=== PATIENT | male | born 1980 | race Caucasian/White ===

== ENCOUNTER 2024-04-30 09:47 | Outpatient (CLI) | payer OTHER, SELFPAY | END 2024-04-30 09:48 | disposition home or self-care (01) | PROVIDERS: PCP Internal Medicine; Visit Provider Internal Medicine | DX: R53.83 Other fatigue (principal); Z13.6 Encounter for screening for cardiovascular disorders | CPT/HCPCS: 80053; 80061; 84443 ==

== ENCOUNTER 2025-04-27 14:00 | Emergency (ER) | payer OTHER, SELFPAY ==
--- OUTSIDE RECORDS SUMMARY | 2025-04-27 14:03 | XMS_ITS | Clinical Summary ---
Author Organization [facility] Address [address] [place] [address] Care Team Providers Care Goring Cutter Name Role Phone Elsewhere, Pcp Primary Care Provider Unavailabl e Source Comments Patient records contain information from all sites at [facility]. For routine questions regarding patient records, call [phone] during business hours, M-F 8:00 AM - 5:00 PM Central Time. Record requests for emergency care only can be directed to [phone] at any time.[facility] Allergies Active Allergy Reactions Criticality Noted Date Comments Pollen Extracts Other (see comments) 02/14/2014 SEASONAL ALLERGIES Medications multivit with minerals/lutein (MULTIVITAMIN 50 PLUS ORAL) One-A-Day Men's Health Formula See Instructions , Take by mouth daily. 02/14/2014 Active albuterol 2.5 mg /3 mL nebulizer solution Inhale 2.5 mg. 06/05/2011 Active albuterol 90 mcg/actuation inhaler May use two puffs up to every 4-6 hours if needed as a rescue inhaler 12/20/2017 Active cetirizine 10 mg capsule Take 10 mg by mouth. 08/07/2017 Active Active Problems Problem Noted Date Diagnosed Date Asthma NOS 02/14/2014 Overview (04/10/2017): Asthma, Unspecified Mild persistent asthma Immunizations Immunization Administration Dates Next Due Influenza TIV (IM) 09/23/2012,09/14/2005, 999 Influenza, Seasonal, Injectable 09/23/2012,09/14,08/30/1999 Influenza, Unspecified 09/21/2021(Deferr ed: Patient decision),09/13/2016,09/23/2012 PCV13 02/11/2015 PPSV23 09/08/2019 Tdap 09/23/2012 influenza vaccine quad (FLUZONE/FLUARIX) (6 months and older)(PF) 09/08/2019,09/24/2018,08/07/2017,2015 Family History Medical History Relation Name Comments Diabetes Father Relation Name Status Comments Father Social History Tobacco Use Types Packs/Day Years Used Date Smoking Tobacco: Never Smokeless Tobacco: Never Tobacco Cessation:Counseling Given: Not Answered PHQ-2 Answer Date Recorded PHQ-2 Score 0 09/21/2021 Nutrition Answer Date Recorded Nutrition: EVOO Fat Source Unknown 01/20 Nutrition: Servings of Fruits/Vegetables per Day Not on file 01/20/2021 Dental Answer Date Recorded Dental: Regular Dentist Unknown 01/21/20 Sex and Gender Information Value Date Recorded Sex Assigned at Male 04/12/2022 9:57 AM CDT Legal Sex Male 10:26 AM INDUSTRIAL MAINTENANCE TECHNICIAN Gender Identity Male 04/12/2022 9:57 AM CDT Sexual Orientation Straight 04/12/2022 9: 57 AM CDT Last Filed Vital Signs Vital Sign Reading Time Taken Comments Blood Pressure 126/80 10/03/2023 10:02 AM INDUSTRIAL MAINTENANCE TECHNICIAN Pulse 77 10/03/2023 10:02 AM INDUSTRIAL MAINTENANCE TECHNICIAN Temperature 36.8 C (98.2 F) 10/03/2023 10:02 AM INDUSTRIAL MAINTENANCE TECHNICIAN Respiratory Rate 16 02/11/2015 9:52 AM CDT Oxygen Saturation 95% 10/03/2023 10: 02 AM INDUSTRIAL MAINTENANCE TECHNICIAN Inhaled Oxygen Concentration - - Weight 95.6 kg (210 lb 12.2 oz) 023 10:02 AM INDUSTRIAL MAINTENANCE TECHNICIAN Height 189 cm (6' 2.41) 10/03/2023 10: 02 AM INDUSTRIAL MAINTENANCE TECHNICIAN Body Mass Index 26.76 10/03/2023 10:02 AM INDUSTRIAL MAINTENANCE TECHNICIAN Plan of Treatment Health Maintenance Due Date Last Done Comments HIV Screening 1980 Hepatitis C Screening 1980 Hepatitis B Vaccines (1 of 3 - 19+ 3-dose series) 1999 Asthma Action Plan 05/02/2017 02/15/2016 Asthma Control Test Questionnaire 05/02/2017 02/15/2016 Asthma Management/Exacerbation Questionnaire (AMQ/AEQ) 05/02/2017 COVID-19 Vaccine ( - 2023- season) 2024 Influenza Vaccine (#1) 2024 9, 09/24/2018, 08/07/2017, Additional history exists Depression Screening (Annual PHQ-2) 11/19/2024 Lipid (Cholesterol) Screening 06/25/2028 06/25/2023, 02/11/2015 Pneumococcal vaccine (0-49 years) (3 of 3 - PCV20 or PCV21) 2030 09/08/2019, 02/11/2015 DTaP,Tdap,and Td Vaccines (3 - Td or Tdap) 06/25/2033 06/25/2023, 09/23/2012 HPV Vaccines Aged Out No longer eligi ble based on patient's age to complete this topic IPV Vaccines Aged Out No longer eligi ble based on patient's age to complete this topic Procedures Procedure Name Priority Date/Time Associated Diagnosis Comments LIPID PANEL, S Routine 02/11/2015 10:27 AM CDT from Last 3 Months or Most Recently Relevant to Health Maintenance Results * (ABNORMAL) Lipid Panel (02/11/2015 10:27 AM CDT) Cholesterol, Total 208(H) 0 - 200 MGDL POWERCHART Comment: <200 mg/dL Desirable 200-239 mg/dL Borderline High >239 mg/dL High HX HDL 58 35 - 60 MGDL POWERCHART Comment: > 60 mg/dL Desirable 40 60 mg/dL Low Risk <40 mg/dL Undesirable Triglycerides 93 9 - 150 MGDL POWERCHART Comment: <150 mg/dL Desirable 150-199 mg/dL Borderline High 200-499 mg/dL High > 499 Very High Calculated LDL 131(H) 100 - 129 MGDL POWERCHART Total Cholesterol/HDL Ratio 4 POWERCHART Blood 02/11/2015 10:2 7 AM CDT us Arslan Lomeli M.D. LAB BLOOD ADD-ON Final Re sult POWERCHART from Last 3 Months or Most Recently Relevant to Health Maintenance Care Teams Goring Cutter Relationship Specialty Start Date End Date Elsewhere, Pcp PCP - General Family Medicine 07/14/20
--- OUTSIDE RECORDS SUMMARY | 2025-04-27 14:03 | XMS_ITS | Clinical Summary ---
Author Organization [facility] Address [facility] [place] [address] Care Team Providers Care Safety Relief Valve Technician Name Role Phone Pcp, No Primary Care Provider Unavailabl e Allergies No known active allergies Medications Cetirizine (ZYRTEC) 10 mg capIndications:En vironmental allergies Take 1 capsule by mouth once daily if needed. 30 Cap 5 7 Active albuterol (PROVENTIL) 0.083 % neb solutionIndicatio ns:Moderate persistent asthma without complication (HC) Inhale 3 mL via a nebulizer every 6 hours if needed. 1 box 5 7 Active NebulizerIndicati ons:Moderate persistent asthma without complication (HC) Nebulizer, disposable neb kit x 4, reuseable neb kit x 1, mask x 1, filters x 1. Frequency of use: daily; Medication: albuterol 0.083%. 1 Device 7 Active montelukast (SINGULAIR) 10 mg tabletIndications :Moderate persistent asthma without complication (HC) Take 1 tablet by mouth at bedtime. 30 tablet 6 8 Active albuterol HFA (VENTOLIN HFA) 90 mcg/actuation inhalerIndication s:Moderate persistent asthma without complication (HC) Inhale 2 Puffs by mouth 4 times daily if needed. 1 Inhaler 6 8 Active fluticasone (FLOVENT) 220 mcg/Actuation inhalerIndication s:Moderate persistent asthma without complication (HC) Inhale 1 Puff by mouth 2 times daily. 1 Inhaler 6 8 Active predniSONE (DELTASONE) 20 mg tabletIndications :Moderate persistent asthma without complication (HC) Take 1 tablet by mouth 2 times daily with meals. 10 tablet 8 Active beclomethasone, 80 mcg each actuation, (QVAR) 80 mcg/actuation inhalerIndication s:Moderate persistent asthma without complication (HC) Inhale 2 Puffs by mouth 2 times daily. 1 Inhaler 5 8 Active Active Problems Problem Noted Date Diagnosed Date Moderate persistent asthma without complication 08/07/2017 Environmental allergies 08/07/2017 Immunizations Immunization Administration Dates Next Due AMB Influenza, IIV4 PF (=>6 mos Flulaval,Fluzone Fluarix)(Flu Clinic Only) 09/24/2018 Influenza, IIV3 (Age >=3 years) 09/23/2012,09/14,08/30/1999 Influenza, IIV4 08/07/2017,09/13/2016 Pneumococcal conj 13-Valent (Prevnar 13) 015 Tdap 09/23/2012 Family History Medical History Relation Name Comments Diabetes Father Asthma Other in nieces No Known Problems Sister 1 Other Sister 2 suicide No Known Problems Son born 11/07 16 Relation Name Status Comments Father Other Sister 1 Sister 2 Son Social History Tobacco Use Types Packs/Day Years Used Date Smoking Tobacco: Never Smokeless Tobacco: Never Tobacco Cessation:Counseling Given: Yes Alcohol Use Standard Drinks/Week Comments Yes 3 (1 standard drink = 0.6 oz pur e alcohol) Social Connections Answer Date Recorded Frequency of Communication with Friends and Fami ly Not on file 11/19/2021 Financial Resource Strain Answer Date R ecorded Difficulty of Paying Living Expenses Not on file 11/19/2021 Difficulty of Paying Living Expenses Not on file 11/19/2021 Sex and Gender Information Value Date Recorded Sex Assigned at Not on file Legal Sex Male 8:29 AM PARK SERVICES SPECIALIST Gender Identity Not on file Sexual Orientation Not on file Obstetrics History Last Filed Vital Signs Vital Sign Reading Time Taken Comments Blood Pressure 116/78 11/01/2021 3:06 PM PARK SERVICES SPECIALIST Pulse 86 11/01/2021 3:06 PM PARK SERVICES SPECIALIST Temperature 36.7 C (98.1 F) 11/01/2021 3:06 PM PARK SERVICES SPECIALIST Respiratory Rate - - Oxygen Saturation 97% 11/01/2021 3:06 PM PARK SERVICES SPECIALIST Inhaled Oxygen Concentration - - Weight 97.4 kg (214 lb 11.2 oz) 11/01/2021 3:06 PM PARK SERVICES SPECIALIST Height 187 cm (6' 1.62) 12/20/2017 10: 34 AM PARK SERVICES SPECIALIST Body Mass Index 27.85 12/20/2017 10:34 AM PARK SERVICES SPECIALIST Plan of Treatment Health Maintenance Due Date Last Done Comments HIV for age 15-65 1995 Hepatitis C screening for age 18-79 1998 Hepatitis B series for 19+ (1 of 3 - 19+ 3-dose series) 1999 Lipids for age 35-44 2015 Depression screening for age 12+ 08/07/2018 08/07/2017 BMI (ht and wt on same day) for age 18+ 12/20/2018 12/20/2017, 08/07/2017 Tetanus booster 09/23/2022 09/23/2012 COVID-19 vaccine series ( season) 2024 Influenza Vaccine (Season Ended) 2025 09/24/2018, 08/07/2017, 09/13/2016, Additional history exists Tdap Completed 09/23/2012 Pneumococcal series for age 6-49 Aged Out 02/11/2015 No longer eligible based on patient's age to complete this topic Care Teams Safety Relief Valve Technician Relationship Specialty Start Date End Date Pcp, No . PCP - General 04/03/17
[2025-04-27 14:06] VITALS: BP 139/83; PULSE 89; RESP 16; TEMP 36.2; O2SAT 95; BMI 27.2
--- NOTE | 2025-04-27 14:12 | ED.GENADULT ---
HPI - General Adult General Chief complaint: Abdominal Pain Stated complaint: middle chest pain/pain in stomach Time Seen by Provider: 04/27/25 14:04 History of Present Illness HPI narrative: Pt reports onset of bilateral chest pain yesterday . Tried tums, did not help. Pain has moved to medial lower chest and feels uncomfortable. More tired than usual. Called clinic and they sent pt to ER. 44-year-old man presenting to the emergency department with concern of some chest discomfort. Began yesterday in is continued today. Just does not feel well. Maybe feels more tired and that is unusual. Not short of breath. Does not use struggle with heartburn. He does endorse intermittently likely needing piece of steak or something that it feels like it temporarily can get caught up and that can make him double over; seems to be describing a similar feeling. Does not know that he has any food though stuck at this point. No known cardiac problems. No shortness of breath with this. [place] like he just needed to burp at. Did manage to do so a bit and did not really change anything. Not feeling lightheaded. History of asthma. Related Data Home Medications ?Medication ?Instructions ?Recorded ?Confirmed loratadine 10 mg tablet (Claritin) 10 mg PO QDAY 04/30/24 04/30/25 Previous Rx's ?Medication ?Instructions ?Recorded fluticasone 250 mcg-salmeterol 50 1 inh inhalation BID #60 ea 07/17/24 mcg/dose blistr powdr for inhalation (Advair Diskus) albuterol sulfate 90 mcg/actuation 2 puff inhalation QID #8.5 grams 04/23/25 aerosol inhaler omeprazole 20 mg capsule,delayed 20 mg PO QDAY #30 caps 04/30/25 release Allergies Allergy/AdvReac Type Severity Reaction Status Date / Time No Known Drug Allergies Allergy Verified 04/30/25 07:54 Review of Systems Status of ROS: Reports: 6 or more systems reviewed and unremarkable except as noted in History and below [facility] Medical History (Updated 04/30/25 @ 08:10 by Forrest Guillaume MD) GERD (gastroesophageal reflux disease) ?K21.9 - Gastro-esophageal reflux disease without esophagitis (ICD-10) Asthma ?J45.909 - Unspecified asthma, uncomplicated (ICD-10) Social History What is your current living situation?: I presently have a place to live Problems where you live: no known problems In the past 12 months, utilities in danger of being shut off: no In past 12 months, lack of transportation kept you from medical appts, meetings, work, or getting things needed for daily living: no In the past 12 mos, have been you worried that your food would run out before you had money to buy more?: never true In the past 12 mos, the food you bought just didn't last and you didn't have money to buy more?: never true Smoking Status: Never smoker How often do you have a drink containing alcohol: never How often do you have six or more drinks on one occasion: Never AUDIT-C Alcohol total score: 0 Non-prescribed substance use: denies use How often does anyone, including family, friends and others, physically hurt you: never How often does anyone, including family, friends and others, insult or talk down to you: sometimes How often does anyone, including family, friends and others, threaten you with harm: never How often does anyone, including family, friends and others, scream or curse at you: sometimes Health Related Social Needs: Other personal risk factors, not elsewhere classified (Z91.89) Exam Narrative: Exam Narrative: Pleasant. NAD. Speaking easily. Breathing easily. Lungs are clear. Heart in regular rate and rhythm without murmur rub or gallop. Abdomen is soft though he seems to be ?fighting back? essentially guarding but it is not tender. No reproduction of pain to palpation of the chest wall either. No supraclavicular crepitus. Extremities are well perfused without edema. Const: Vital Signs, click to edit/add: Vital Signs - 24 hr 04/27/25 14:06 Temperature 97.1 F L Pulse Rate [Pulse Oximeter] 89 Respiratory Rate 16 Blood Pressure [Ri ght Upper Arm] 139/83 Pulse Oximetry 95 Oxygen Delivery Me thod Room Air Documenting provider has reviewed patient's vital signs: yes Course Vital Signs Vital signs: Initial Vital Signs Temperature 97.1 F L 04/27/25 14:06 Temperature Source Temporal Artery Scan 04/27/25 14:06 Pulse Rate 89 04/27/25 14:06 Respiratory Rate 16 04/27/25 14:06 Blood Pressure 139/83 04/27/25 14:06 Blood Pressure Mean 101 04/27/25 14:06 Blood Pressure Position Sitting 04/27/25 14:06 Pulse Oximetry 95 04/27/25 14:06 Oxygen Delivery Method Room Air 04/27/25 14:06 Vital Signs Temperature 97.1 F L 04/27/25 14:06 Pulse Rate 89 04/27/25 14:06 Respiratory Rate 16 04/27/25 14:06 Blood Pressure 139/83 04/27/25 14:06 Pulse Oximetry 95 04/27/25 14:06 Oxygen Delivery Method Room Air 04/27/25 14:06 Temperature 97.1 F L 04/27/25 14:06 Pulse Rate 89 04/27/25 14:06 Respiratory Rate 16 04/27/25 14:06 Blood Pressure 139/83 04/27/25 14:06 Pulse Oximetry 95 04/27/25 14:06 Oxygen Delivery Method Room Air 04/27/25 14:06 Medications Administered Medications: Discontinued Medications Generic Name Dose Route Start Last Admin Trade Name Freq PRN Reason Stop Dose Admin Lidocaine/Aluminum/Magnesium/Simeth 30 ml 04/27/25 15:12 04/27/25 15:27 Gi Cocktail (Visc Lido/Antacid) 30 Ml PO 04/27/25 15:13 30 ml ONCE ONE Administration Medical Decision Making MDM Narrative Medical decision making narrative: Nonspecific chest pain at this point. Could be some difficulty with esophageal relaxation/dysmotility issue/dysphagia. Is managing secretions however this point. Suppose pneumomediastinum or pneumothorax? Will evaluate also for ischemic cardiovascular disease. Unlikely to have pulmonary embolus. Not pleuritic with as I would expect with pleuritis. Might have a stricture. Monitor on monitoring and evaluation advisor emergency department without event. Labs are reassuring. Chest x-ray one view looks to be without pneumothorax or pneumomediastinum. Normal cardiac silhouette. No infiltrate appreciated. Did trial GI cocktail. This may be did help some symptoms lessen. see patient discharge plan for further discussion It does sound as though you might be having some trouble with your esophagus. Have not seen any evidence of a heart problem here today. If you suspect indigestion or heartburn symptoms, you might try famotidine once or twice daily. Perhaps for more rapid relief could try liquid antacid/anti-gas as well. I would encourage you to follow-up with your primary care provider to discuss further evaluation which might include an esophagogastric duodenoscopy or maybe more of a heart workup if that seems more appropriate. Take care with eating in the meantime. Stay well-hydrated. Medical Records Medical records reviewed: Yes I reviewed the patient's medical records Lab Data Lab results reviewed: Yes I reviewed the patient's lab results Labs: Lab Results 04/27/25 04/27/25 04/27/25 Range/Units 14:25 14:36 15:12 WBC 6.46 (4.50-11.00) K/uL RBC 4.97 (4.30-5.90) m/uL Hgb 14.8 (13.5-17.5) gm/dL Hct 43.6 (37.0-53.0) % MCV 88 (80-100) fL MCH 30 (26-34) pg MCHC 34 (32-36) gm/dL RDW Coeff of Papa 12.4 (11.5-15.5) % Plt Count 236 (140-440) K/uL Neut % (Auto) 60.2 (42.0-72.0) % Lymph % (Auto) 27.2 (20-44) % [place] % (Auto) 8.8 (0.0-11.0) % Eos % (Auto) 2.8 (0.0-7.0) % Baso % (Auto) 0.8 (0.0-3.0) % Neut # (Auto) 3.89 (1.7-7.0) K/uL Lymph # (Auto) 1.76 (0.90-2.90) K/uL [place] # (Auto) 0.60 (0.00-0.90) K/UL Eos # (Auto) 0.18 (0.00-0.50) K/uL Baso # (Auto) 0.05 (0.00-0.30) K/uL Abs Immat Gran (auto) 0.01 (0.00-0.30) K/uL Imm/Tot Granulo (auto) 0.2 % Sodium 140 (135-149) mmol/L Potassium 4.4 (3.6-5.1) mmol/L Chloride 103 (96-114) mmol/L Carbon Dioxide 31 (20-32) mmol/L Anion Gap 6 L (7-15) mEq/L BUN 12 (5-24) mg/dL Creatinine 1.0 (0.5-1.5) mg/dL Estimated Creat Clear 106.53 Estimated GFR 95 ml/min Glucose 97 (60-115) mg/dL Calcium 9.7 (8.4-10.6) mg/dL Total Bilirubin 0.8 (0.1-1.5) mg/dL Direct Bilirubin 0.1 (0.0-0.5) mg/dL AST 34 (12-35) U/L ALT 45 (4-50) U/L Alkaline Phosphatase 59 (40-150) U/L Troponin I < 0.01 (0.01-0.04) ng/mL NT-Pro-B Natriuret Pep < 20 (See Note) pg/mL Total Protein 7.4 (6.0-8.3) g/dL Albumin 4.7 (3.3-5.0) g/dL Lab Acknowledgement Test Added POC Troponin I 0.00 L (0.01-0.04) ng/ml ECG Data Attestation: I personally reviewed and interpreted this ECG as follows: (Normal sinus rhythm. Rate of 71. Similar to prior.) Discharge Plan Discharge Clinical Impression: Atypical chest pain Patient Disposition: Home, Self-Care Condition: Improved Additional Instructions: It does sound as though you might be having some trouble with your esophagus. Have not seen any evidence of a heart problem here today. If you suspect indigestion or heartburn symptoms, you might try famotidine once or twice daily. Perhaps for more rapid relief could try liquid antacid/anti-gas as well. I would encourage you to follow-up with your primary care provider to discuss further evaluation which might include an esophagogastric duodenoscopy or maybe more of a heart workup if that seems more appropriate. Take care with eating in the meantime. Stay well-hydrated. Prescriptions: No Action omeprazole 20 mg capsule,delayed release(DR/EC) 20 mg PO QDAY Qty: 30 0RF loratadine [Claritin] 10 mg tablet 10 mg PO QDAY fluticasone propion-salmeterol [Advair Diskus] 250-50 mcg/dose blister with device 1 inh inhalation BID Qty: 60 3RF albuterol sulfate 90 mcg/actuation HFA aerosol inhaler 2 puff inhalation QID Qty: 8.5 3RF Follow Up/Referrals: Forrest Guillaume MD [Primary Care Provider, Internal Medicine] Stand Alone Forms: [employer] Info Instructions
--- NOTE | 2025-04-27 14:25 | CRLHL7_ITS ---
For Patients: As a result of the Century Cures Act, medical imaging exams and procedure reports are released immediately into your electronic medical record. You may view this report before your referring provider. If you have questions, please contact your health care provider. INDICATION: Generalized chest pain. TECHNIQUE: Chest 1 views. COMPARISON: None. FINDINGS: Cardiovasculature and mediastinum: Heart size and vasculature are normal in caliber and appearance. Lungs and pleural spaces: Lungs are clear. No sign of infiltrate or mass. No sign of pleural effusion. No pneumothorax. Bones and soft tissues: No significant findings. IMPRESSION: No acute or significant findings. Dictated by Tyson Padilla MD @ 04/27/2025 3:37:59 PM (Electronically Signed)
[2025-04-27 14:42] LABS: Basophils Absolute Auto 0.05 K/uL (0.00-0.30); Basophils Percent Auto 0.8 % (0.0-3.0); Eosinophils Absolute Auto 0.18 K/uL (0.00-0.50); Eosinophils Percent Auto 2.8 % (0.0-7.0); Hematocrit 43.6 % (37.0-53.0); Hemoglobin* 14.8 gm/dL (13.5-17.5); Immature Granulocytes Abs Auto 0.01 K/uL (0.00-0.30); Immature Granulocytes Pct Auto 0.2 %; Lymphocytes Absolute Auto 1.76 K/uL (0.90-2.90); Lymphocytes Percent Auto 27.2 % (20-44); Mean Corpuscular HGB Conc 34 gm/dL (32-36); Mean Corpuscular Hemoglobin 30 pg (26-34); Mean Corpuscular Volume 88 fL (80-100); Monocytes Percent Auto 8.8 % (0.0-11.0); Neutrophils Absolute Auto 3.89 K/uL (1.7-7.0); Neutrophils Percent Auto 60.2 % (42.0-72.0); Platelet Count* 236 K/uL (140-440); RDW Coefficient of Variation % 12.4 % (11.5-15.5); Red Blood Count 4.97 m/uL (4.30-5.90); White Blood Count* 6.46 K/uL (4.50-11.00)
[2025-04-27 15:04] LABS: Chloride* 103 mmol/L (96-114)
[2025-04-27 15:05] LABS: Potassium* 4.4 mmol/L (3.6-5.1); Sodium* 140 mmol/L (135-149)
[2025-04-27 15:08] LABS: Anion Gap 6 mEq/L (7-15); Blood Urea Nitrogen* 12 mg/dL (5-24); Calcium* 9.7 mg/dL (8.4-10.6); Carbon Dioxide* 31 mmol/L (20-32); Est. Creatinine Clearance* 106.53; Estimated Glomerular Filt Rate 95 ml/min; Glucose* 97 mg/dL (60-115)
[2025-04-27 15:16] LABS: Slide Review Reflex No
[2025-04-27 15:23] LABS: NT Pro B Type NatriureticPept* < 20 pg/mL (See Note); Troponin I* < 0.01 ng/mL (0.01-0.04)
[2025-04-27] MEDS: GI COCKTAIL (VISC LIDO/ANTACID) 30 ML PO (15:27)
[2025-04-27 15:29] LABS: Albumin* 4.7 g/dL (3.3-5.0)
[2025-04-27 15:32] LABS: Alanine Aminotransferase* 45 U/L (4-50); Alkaline Phosphatase* 59 U/L (40-150); Aspartate Amino Transferase* 34 U/L (12-35); Bilirubin Direct* 0.1 mg/dL (0.0-0.5); Bilirubin Total* 0.8 mg/dL (0.1-1.5); Total Protein* 7.4 g/dL (6.0-8.3)
== END 2025-04-27 16:05 | disposition home or self-care (01) ==
PROVIDERS: Emergency Provider Family Medicine; PCP Internal Medicine
DX: R07.9 Chest pain, unspecified (principal)
CPT/HCPCS: 36415; 71045; 80048; 80076; 83880; 84484; 85025; 93005; 99284; A9270

== ENCOUNTER 2025-08-27 13:17 | Outpatient (CLI) | payer OTHER, SELFPAY | END 2025-08-27 13:18 | disposition home or self-care (01) | LOC: FRMREF 13:19 | PROVIDERS: PCP Internal Medicine; Visit Provider Family Medicine | DX: Z11.4 Encounter for screening for human immunodeficiency virus [HIV] (principal) | CPT/HCPCS: 86703 ==